=== PATIENT | female | born 1995 ===

== ENCOUNTER 2018-01-13 21:30 | Inpatient (IN) | payer BC, OTHER ==
[~2018-01-13] VITALS: Ht 162.6 cm; Wt 56.7 kg
[2018-01-14] MEDS ORDERED: LORAZEPAM 2 MG/1 ML VIAL IM PRN (21:30)
[2018-01-14] MEDS ORDERED: MAGNESIUM HYDROXIDE 30 ML LIQUID UDC PO PRN (21:30)
[2018-01-14] MEDS ORDERED: ONDANSETRON ODT 4 MG TAB.RAPDIS SL PRN (21:30)
[2018-01-14] MEDS ORDERED: LORAZEPAM 1 MG TABLET PO PRN ×2 (21:30)
[2018-01-14] MEDS ORDERED: NICOTINE 14 MG/24HR PATCH TD PRN (21:30)
[2018-01-14] MEDS ORDERED: METHOCARBAMOL 750 MG TABLET PO PRN (21:30)
[2018-01-14] MEDS ORDERED: MIRALAX 17 GM POWD.PACK PO PRN (21:30)
[2018-01-14] MEDS ORDERED: DICYCLOMINE HCL 20 MG TABLET PO PRN (21:30)
[2018-01-14] MEDS ORDERED: CLONIDINE HCL 0.1 MG TABLET PO PRN (21:30)
[2018-01-14] MEDS ORDERED: NICOTINE POLACRILEX 4 MG GUM-PK OF TEN BC PRN (21:30)
[2018-01-14] MEDS ORDERED: diphenhydrAMINE 50 MG CAPSULE PO PRN (21:30)
[2018-01-14] MEDS ORDERED: MAG HYDROX/AL HYDROX/SIMETH 30 ML LIQUID UDC PO PRN (21:30)
[2018-01-14] MEDS ORDERED: IBUPROFEN 600 MG TABLET PO PRN (21:30)
[2018-01-14] MEDS ORDERED: BUPRENORPHINE HCL 2 MG TAB.SUBL SL PRN (21:30)
[2018-01-14] MEDS ORDERED: ONDANSETRON 4 MG/2 ML VIAL IM PRN (21:30)
[2018-01-14] MEDS ORDERED: LOPERAMIDE HCL 2 MG CAPSULE PO PRN ×2 (21:30)
[2018-01-14] MEDS ORDERED: ACETAMINOPHEN 325 MG TABLET PO PRN (21:30)
[2018-01-14 22:45] VITALS: BP 116/77
[2018-01-14 22:56] LABS: *URINE HCG, QUAL NEGATIVE (NEGATIVE)
[2018-01-14 22:57] LABS: BASOPHILS % (AUTO) 0.4 % (0.0-2.0); EOSINOPHILS # (AUTO) 0.1 K/uL (0.0-0.7); EOSINOPHILS % (AUTO) 0.8 % (0.0-7.0); HEMATOCRIT 46.2 % (31.2-41.9); HEMOGLOBIN 15.5 g/dL (10.9-14.3); LYMPHOCYTES % (AUTO) 24.9 % (20.5-51.5); MEAN CORPUSCULAR HGB CONC 34 g/dL (32.3-35.6); MEAN CORPUSCULAR VOLUME 89.3 fL (75.5-95.3); MONOCYTES # (AUTO) 0.6 K/uL (2.0-10.0); MONOCYTES % (AUTO) 7.6 % (0.0-11.0); NEUTROPHILS # (AUTO) 5.4 K/uL (1.8-8.9); NEUTROPHILS % (AUTO) 66.3 % (38.5-71.5); PLATELET COUNT (AUTO) 216 K/uL (179-408); RED BLOOD CELL COUNT(AUTO) 5.17 MIL/uL (3.63-4.92); WHITE BLOOD COUNT (AUTO) 8.2 K/uL (3.8-11.8)
[2018-01-14 23:13] LABS: *AMPHETAMINE, URINE NEGATIVE (NEGATIVE); *BARBITURATE, URINE NEGATIVE (NEGATIVE); *CANNABINOID, URINE POSITIVE (NEGATIVE); *COCCAINE, URINE NEGATIVE (NEGATIVE); *OPIATE, URINE POSITIVE (NEGATIVE); *PHENCYCLIDINE SCREEN,URINE NEGATIVE (NEGATIVE)
[2018-01-14 23:14] LABS: ETHANOL < 3 MG/DL (0-0)
[2018-01-14 23:17] LABS: ALANINE AMINOTRANSFERASE 99 U/L (14-59); ALKALINE PHOSPHATASE 125 U/L (50-136); ASPARTATE AMINOTRANSFERASE 40 U/L (15-37); BILIRUBIN,TOTAL 0.4 mg/dL (0.2-1.0); CARBON DIOXIDE 31 mmol/L (21-32); CHLORIDE 102 mmol/L (98-107); CREATININE 0.8 mg/dL (0.6-1.3); GLUCOSE 64 mg/dL (74-106); MAGNESIUM 2.2 mg/dL (1.8-2.4); POTASSIUM 3.4 mmol/L (3.5-5.1); TOTAL PROTEIN, SERUM 8.6 g/dL (6.4-8.2); UREA NITROGEN, BLOOD 7 mg/dL (7-18)
[2018-01-15] VITALS: BP 93/51
[2018-01-15 04:00] VITALS: BP 100/58
[2018-01-15 08:00] VITALS: BP 121/75
[2018-01-15] MEDS: BUPRENORPHINE HCL 2 MG TAB.SUBL SL SCH ×5 (09:00→20:44)
[2018-01-15] MEDS ORDERED: TUBERCULIN,PURIF.PROT.DERIV. 5 TU/0.1 ML TEST ID ONE (09:00)
[2018-01-15] MEDS: GABAPENTIN 300 MG CAPSULE PO SCH ×2 (09:14→20:44)
[2018-01-15] MEDS ORDERED: POTASSIUM CHLORIDE 10 MEQ TAB.PRT.SR PO ONE (10:00)
[2018-01-15 12:00] VITALS: BP 113/65
[2018-01-15 16:00] VITALS: BP 105/61
[2018-01-15 20:00] VITALS: BP 113/72
[2018-01-15] MEDS ORDERED: LORAZEPAM 1 MG TABLET PO SCH (21:00)
[2018-01-16] VITALS: BP 109/65
[2018-01-16 04:00] VITALS: BP 129/84
[2018-01-16 08:00] VITALS: BP 119/84
[2018-01-16] MEDS: GABAPENTIN 300 MG CAPSULE PO SCH ×3 (08:26→21:42)
[2018-01-16] MEDS ORDERED: LORAZEPAM 1 MG TABLET PO SCH ×2 (09:00→21:00)
[2018-01-16] MEDS ORDERED: BUPRENORPHINE HCL 2 MG TAB.SUBL SL SCH ×2 (09:00→15:00)
[2018-01-16 12:30] VITALS: BP 121/84
[2018-01-16] MEDS: LORAZEPAM 1 MG TABLET PO SCH ×2 (12:59→16:18)
[2018-01-16] MEDS: BUPRENORPHINE HCL 2 MG TAB.SUBL SL SCH ×3 (13:00→21:43)
[2018-01-16] MEDS: DICYCLOMINE HCL 20 MG TABLET PO SCH ×2 (14:30→21:42)
[2018-01-16 16:31] VITALS: BP 113/70
[2018-01-16 20:00] VITALS: BP 121/79
[2018-01-16] MEDS: CLONIDINE HCL 0.1 MG TABLET PO SCH (21:42)
[2018-01-16] MEDS: QUETIAPINE FUMARATE 100 MG TABLET PO SCH (21:43)
[2018-01-16 22:10] LABS: HEPATITIS B SURFACE AG Negative (Negative)
[2018-01-17] VITALS: BP 111/80
[2018-01-17 04:00] VITALS: BP 96/59
[2018-01-17 08:00] VITALS: BP 98/61
[2018-01-17] MEDS: GABAPENTIN 300 MG CAPSULE PO SCH ×3 (08:43→21:13)
[2018-01-17] MEDS: DICYCLOMINE HCL 20 MG TABLET PO SCH ×3 (08:43→21:15)
[2018-01-17] MEDS: CLONIDINE HCL 0.1 MG TABLET PO SCH ×3 (08:43→21:15)
[2018-01-17] MEDS: BUPRENORPHINE HCL 2 MG TAB.SUBL SL SCH ×3 (08:44→21:15)
[2018-01-17] MEDS ORDERED: LORAZEPAM 1 MG TABLET PO SCH ×3 (09:00→21:00)
[2018-01-17 12:00] VITALS: BP 110/72
[2018-01-17] MEDS ORDERED: KETOROLAC TROMETHAMINE 30 MG INJ IM PRN (12:15)
[2018-01-17 16:00] VITALS: BP 102/61
[2018-01-17 20:00] VITALS: BP 107/63
[2018-01-17] MEDS: QUETIAPINE FUMARATE 100 MG TABLET PO SCH (21:15)
[2018-01-18] VITALS: BP 98/56
[2018-01-18 08:00] VITALS: BP 94/62
[2018-01-18] MEDS ORDERED: HYDROXYZINE PAMOATE 25 MG CAPSULE PO PRN (09:00)
[2018-01-18] MEDS: BUPRENORPHINE HCL 2 MG TAB.SUBL SL SCH ×2 (09:34→20:57)
[2018-01-18] MEDS: GABAPENTIN 300 MG CAPSULE PO SCH ×3 (09:34→20:57)
[2018-01-18] MEDS: DICYCLOMINE HCL 20 MG TABLET PO SCH ×3 (09:34→20:57)
[2018-01-18] MEDS: CLONIDINE HCL 0.1 MG TABLET PO SCH ×2 (09:35→20:58)
[2018-01-18] MEDS: LORAZEPAM 1 MG TABLET PO SCH ×2 (09:35→20:58)
[2018-01-18 12:17] VITALS: BP 103/65
[2018-01-18 16:00] VITALS: BP 101/71
[2018-01-18] MEDS ORDERED: QUET100T PO (17:02)
[2018-01-18] MEDS ORDERED: DICY20TA28 PO (17:02)
[2018-01-18] MEDS ORDERED: HYDR-3895 PO (17:02)
[2018-01-18] MEDS ORDERED: IBUP-1955 PO (17:02)
[2018-01-18] MEDS ORDERED: DIPH50CA37 PO (17:02)
[2018-01-18] MEDS ORDERED: METH-406 PO (17:02)
[2018-01-18] MEDS ORDERED: CLON0.1T14 PO (17:02)
[2018-01-18] MEDS ORDERED: GABA-534 PO ×2 (17:02)
[2018-01-18 20:00] VITALS: BP 112/64
[2018-01-18] MEDS: QUETIAPINE FUMARATE 100 MG TABLET PO SCH (20:57)
[2018-01-19] VITALS: BP 98/67
[2018-01-19 04:00] VITALS: BP 103/62
[2018-01-19 08:49] VITALS: BP 96/62
[2018-01-19] MEDS: GABAPENTIN 300 MG CAPSULE PO SCH ×3 (08:57→20:52)
[2018-01-19] MEDS: DICYCLOMINE HCL 20 MG TABLET PO SCH ×3 (08:57→20:51)
[2018-01-19] MEDS: CLONIDINE HCL 0.1 MG TABLET PO SCH ×2 (08:57→20:51)
[2018-01-19] MEDS ORDERED: BUPRENORPHINE HCL 2 MG TAB.SUBL SL SCH (09:00)
[2018-01-19] MEDS ORDERED: LORAZEPAM 1 MG TABLET PO SCH (09:00)
[2018-01-19] MEDS ORDERED: SILVER NITRATE APPLICATOR STICK EACH TP STA (09:22)
[2018-01-19] MEDS ORDERED: LIDOCAINE 1%-EPI 1:100,000 20 ML VIAL IJ ONE (10:15)
[2018-01-19 13:48] VITALS: BP 114/62
[2018-01-19 16:38] VITALS: BP 112/69
[2018-01-19 20:00] VITALS: BP 115/73
[2018-01-19] MEDS: QUETIAPINE FUMARATE 100 MG TABLET PO SCH (20:52)
[2018-01-20] VITALS: BP 92/50
[2018-01-20 04:00] VITALS: BP 100/52
[2018-01-20 08:02] VITALS: BP 107/60
[2018-01-20 08:45] VITALS: BP 107/60
[2018-01-20] MEDS: GABAPENTIN 300 MG CAPSULE PO SCH (08:45)
[2018-01-20] MEDS: DICYCLOMINE HCL 20 MG TABLET PO SCH (08:45)
[2018-01-20] MEDS: CLONIDINE HCL 0.1 MG TABLET PO SCH (08:45)
== END 2018-01-20 09:30 | DRG 895 ==
LOC: SRC 01-14 22:03
PROVIDERS: ADMIT Internal Medicine; ATTEND Internal Medicine
PROC: HZ2ZZZZ Detoxification Services for Substance Abuse Treatment (ICD-10-PCS; principal; 2018-01-14)
PROC: HZ41ZZZ Group Counseling for Substance Abuse Treatment, Behavioral (ICD-10-PCS; 2018-01-17)
PROC: HZ31ZZZ Individual Counseling for Substance Abuse Treatment, Behavioral (ICD-10-PCS; 2018-01-17)
PROC: 0J9F3ZZ Drainage of Left Upper Arm Subcutaneous Tissue and Fascia, Percutaneous Approach (ICD-10-PCS; 2018-01-19)
DX: F11.23 Opioid dependence with withdrawal (principal); Z86.74 Personal history of sudden cardiac arrest; L02.414 Cutaneous abscess of left upper limb; Z59.0 Homelessness; F13.239 Sedative, hypnotic or anxiolytic dependence with withdrawal, unspecified; Z91.89 Other specified personal risk factors, not elsewhere classified; J45.20 Mild intermittent asthma, uncomplicated; F41.9 Anxiety disorder, unspecified; Z81.1 Family history of alcohol abuse and dependence; F17.210 Nicotine dependence, cigarettes, uncomplicated; E16.2 Hypoglycemia, unspecified; E87.6 Hypokalemia; E86.0 Dehydration; S41.132S Puncture wound without foreign body of left upper arm, sequela; X78.8XXS Intentional self-harm by other sharp object, sequela; Z59.1 Inadequate housing; B19.20 Unspecified viral hepatitis C without hepatic coma; F12.20 Cannabis dependence, uncomplicated; F32.9 Major depressive disorder, single episode, unspecified
CPT/HCPCS: 36415; 70030-TC; 80307; 80349; 80361; 83735; 84703; 85025; 86580; 86592; 86705; 86803; 87340; 87806; A4663; G0480; J3490